=== PATIENT | female | born 1985 | race African-American/Black ===

== ENCOUNTER → 2017-11-21 | Outpatient (CLI) | payer OTHER | END | disposition home or self-care (01) | LOC: KCIC MRI 15:16 | DX: F07.81 Postconcussional syndrome (principal); G43.909 Migraine, unspecified, not intractable, without status migrainosus | CPT/HCPCS: 70551 ==

== ENCOUNTER → 2018-02-10 | Outpatient (CLI) | payer OTHER ==
[~2018-02-10] MED LIST: BUPIVACAINE MPF 0.25% 30 ML VIAL.; LIDOCAINE 1% PF 2 ML VIAL.; methylPREDNISolone ACETATE 80 MG/ML VIAL.
== END ==
LOC: PNCL 10:20
DX: M25.551 Pain in right hip (principal); F32.9 Major depressive disorder, single episode, unspecified; Z98.890 Other specified postprocedural states; Z88.5 Allergy status to narcotic agent; Z88.8 Allergy status to other drugs, medicaments and biological substances; Z72.89 Other problems related to lifestyle
CPT/HCPCS: 20605; 77002; J1040; J3490

== ENCOUNTER → 2018-04-02 | Outpatient (CLI) | payer OTHER ==
[~2018-04-02] MED LIST changes: +BUPIVACAINE MPF 0.25% 10 ML VIAL. ONE; -BUPIVACAINE MPF 0.25% 30 ML VIAL.; +BUPR200T PO; +BUTA1CAP31 PO; +CYCL10TA2 PO; +ESCITALOPRAM OX20 MG PO; +HYDR-963 PO; +IOHEXOL 180 MG/ML 10 ML VIAL. ONE; -LIDOCAINE 1% PF 2 ML VIAL.; +LIDOCAINE 2% PF 2ML VIAL. ONE; +MAGN400C PO; +PANT20TA2 PO; +PROG200C15 PO; +SUMA100T4 PO; +TRAZ-86 PO; +[UNRECOGNIZED DRUG - CODE] PO; -methylPREDNISolone ACETATE 80 MG/ML VIAL.; +methylPREDNISolone ACETATE 80 MG/ML VIAL. ONE
--- NOTE | 2018-04-02 13:59 | PAIN ---
DATE OF SERVICE: 04/02/2018 DIAGNOSES: Right hip pain with osteoarthritis, right hip; also, right greater trochanter bursitis. HISTORY OF PRESENT ILLNESS: The patient is a 32-year-old female who returns for followup status post right greater trochanteric bursa injection 02/10/2018. The patient did very well with 100% improvement for about a month. The patient reports pain has been returning gradually, last reported was in January, but starting to be more painful on the right hip. The patient reports it is radiating, constant, aching, tight, shooting on the right side. The patient reports it is a 10 on a scale of 10 at its worst, 9 on average and 8 at its least. The patient reports and it is an 8 today. The patient reports it is worse with standing and walking. She is doing fourth week of physical therapy and reports she is doing fairly well with this. She felt like it is helpful at least. The patient reports it awakens her from sleep sporadically if she lays on her right side, otherwise she is doing fairly well. She has been increasing her distance walking and doing activities at home as well as with children and household activities with greater ease and comfort. The patient reports no new motor or sensory deficits, no new changes. PHYSICAL EXAMINATION: VITAL SIGNS: The patient's blood pressure 109/72, pulse 72, respirations are 16, temperature is 98.2 degrees Fahrenheit. Weight is 148 pounds. GENERAL: The patient is awake, alert, oriented, appropriate, very pleasant demeanor. HEENT: Head shows normocephalic, atraumatic. Extraocular movements are intact, symmetrical. Oral cavity: Mucous membranes moist and pink. Dentition is intact. NECK: Shows anterior throat supple without palpable lymphadenopathy noted. Swallow reflex is symmetrical. CHEST: Shows normal with inspection. Breath sounds clear to auscultation bilaterally. HEART: Shows S1, S2 clear. No murmurs auscultated. ABDOMEN: Soft, nontender, nondistended. No palpable organomegaly is noted. No rebound or guarding demonstrated. BACK: Shows spine grossly in the midline. EXTREMITIES: The patient's lower extremities show deep tendon reflexes at 2+ in the patellar, 1+ tendo calcaneus tendons. Motor exam is strong with 5/5 dorsiflexion and extension bilaterally. The patient's right greater trochanter is very tender with palpation with significant pain and some radiation of pain in the lateral aspect of the inferior thigh. Left side is nontender. The patient has good rotational motion and Ronnie's maneuver is negative bilaterally. Peripheral pulses are 1+ posterior tibia. No peripheral edema is noted. Options were discussed with the patient. The patient's old chart was reviewed as his current medication regimen and updated. Current review of systems is updated today as well and we will proceed with a repeat right greater trochanteric bursa injection today with fluoroscopic guidance. Risks were again discussed including, but not limited to bleeding, infection, possibility of intravascular injection sequelae, spread of local anesthetic and numbness, side effects of steroid medication and poor results regarding pain control. The patient understands and wished to proceed. The patient will return to clinic in approximately 2 weeks for followup, was counseled on return appointment, activity level and side effects to be aware of. DIAGNOSIS: Right greater trochanteric bursitis. PROCEDURE: Right greater trochanteric bursa injection using C-arm fluoroscopic guidance under sterile prep and drape using local anesthetic. MEDICATION INJECTED: A total of 3 mL of 0.25% bupivacaine and 80 mg Depo-Medrol plus 1.5 mL of Isovue for contrast. CONDITION AT DISCHARGE: Stable. The patient tolerated procedure well, had no complications. MALLORY HUNT MD DR: KALI/robin JOB#: [id number] / [id number]
== END | disposition home or self-care (01) ==
LOC: PNCL 08:17
PROVIDERS: ATTEND Anesthesiology
DX: M70.61 Trochanteric bursitis, right hip (principal); M16.11 Unilateral primary osteoarthritis, right hip; Z88.5 Allergy status to narcotic agent; Z88.8 Allergy status to other drugs, medicaments and biological substances; F32.9 Major depressive disorder, single episode, unspecified; Z72.89 Other problems related to lifestyle; Z98.890 Other specified postprocedural states; Z79.899 Other long term (current) drug therapy
CPT/HCPCS: 20605; 77002; J1040; J2001; J3490; Q9965

== ENCOUNTER → 2018-06-11 | Outpatient (CLI) | payer OTHER ==
[~2018-06-11] MED LIST changes: -BUPIVACAINE MPF 0.25% 10 ML VIAL. ONE; +BUPIVACAINE MPF 0.25% 30 ML VIAL. ONE; -LIDOCAINE 2% PF 2ML VIAL. ONE
--- NOTE | 2018-06-11 22:13 | PAIN ---
DATE OF SERVICE: 06/11/2018 PROGRESS NOTE FOR PAIN CLINIC DIAGNOSES: Right hip joint pain with osteoarthritis, right hip joint and right greater trochanteric bursitis. HISTORY OF PRESENT ILLNESS: The patient is a 32-year-old female who returns for followup status post right greater trochanteric bursa injection on 04/02/2018. The patient did very well with about 100% improvement for about a month after that. The patient reports the pain is returning now and she is currently doing physical therapy exercises, which seems to be helping but still significant pain in the right lateral hip despite stretching and physical therapy. The patient reports the pain is at 8 on scale of 10 at its worst, 8 on average, 6 at its least and is an 8 today. The patient reports it is stabbing, sharp, shooting, becoming more constant, more severe and radiating at times into the lateral anterior thigh, mostly in the lateral thigh on the right side. The patient reports it is worse with walking, standing, change in positions, lying on her right side does awaken her from sleep in about every 5 hours or so. She can usually reposition and get back to sleep. Her left side is hurting mildly beginning to which has not been a problem before, but she is noticing this as she lays more on her left side at night. The patient reports no new motor or sensory deficits and no new bowel or bladder incontinence. Again, currently doing physical therapy exercises and enrolled in physical therapy with some improvement. PHYSICAL EXAMINATION: VITAL SIGNS: The patient's blood pressure 113/71, pulse 67, respirations 16 and temperature 98.2 degrees Fahrenheit. Height is 5 feet 3 inches and weight is 157 pounds. GENERAL: The patient is awake, alert, oriented, appropriate and very pleasant demeanor. HEENT: Head shows normocephalic and atraumatic. Extraocular movements are intact, symmetrical. Oral cavity: Mucous membranes are moist and pink. NECK: Shows anterior throat supple without palpable lymphadenopathy noted. Swallow reflex is symmetrical with normal rotational motion of the cervical spine without difficulty, both laterally as well as extension and flexion without difficulty. CHEST: Shows normal on inspection. Breath sounds clear to auscultation bilaterally. HEART: Shows S1 and S2 clear. No murmurs auscultated. ABDOMEN: Soft, nontender and nondistended. No palpable organomegaly is noted. No rebound or guarding demonstrated. BACK: The patient's back shows spine grossly in the midline with a normal-appearing thoracic kyphosis and lumbar lordotic curvature. The patient has good rotational motion of the lumbar spine, both laterally as well as extension and flexion without difficulty. EXTREMITIES: The patient's lower extremities show deep tendon reflexes at 2+ in the patellar, 1+ tendo-calcaneus tendons. Motor exam is strong with 5/5 dorsiflexion and extension. No peripheral edema is noted. Peripheral pulses are 1+ posterior tibial bilaterally. The patient's right hip shows significant tenderness with palpation over the right greater trochanter even with moderate tenderness and very tender, very severely tender with the patient drawing away from the examining hand. Left side is mildly to moderately tender over the left greater trochanter as well. The patient has full rotational motion of the hip with a negative Ronnie sign bilaterally. Options were discussed with the patient. The patient's old chart was reviewed as well as her current medication regimen updated. Current review of systems updated today as well. We will proceed with a right greater trochanteric bursa injection under fluoroscopic guidance today with risks discussed including, but not limited to bleeding, infection, possibility of intravascular injection sequelae, spread of local anesthetic and numbness, side effects of steroid medication, exposure to fluoroscopy and poor results regarding pain control. The patient understands and wished to proceed. The patient will return to the clinic in approximately 2 weeks for followup, was counseled as to return appointment, activity level and side effects to be aware of. DIAGNOSIS: Right greater trochanteric bursitis. PROCEDURE: Right greater trochanteric bursa injection using C-arm fluoroscopic guidance under sterile prep and drape using local anesthetic. MEDICATION INJECTED: A total of 3 mL of 0.25% bupivacaine and 80 mg Depo-Medrol and 1.5 mL of Isovue for contrast. CONDITION AT DISCHARGE: Stable. The patient tolerated the procedure well and had no complications. MALLORY HUNT MD DR: KALI/robin JOB#: [id number] / [id number]
== END | disposition home or self-care (01) ==
LOC: PNCL 11:15
PROVIDERS: ATTEND Anesthesiology
DX: M70.61 Trochanteric bursitis, right hip (principal); M16.11 Unilateral primary osteoarthritis, right hip; Z88.5 Allergy status to narcotic agent; Z88.8 Allergy status to other drugs, medicaments and biological substances
CPT/HCPCS: 20610; 77002; J1040; J3490; Q9965

== ENCOUNTER → 2018-07-03 | Outpatient (CLI) | payer OTHER ==
[~2018-07-03] MED LIST changes: +BUPIVACAINE MPF 0.25% 10 ML VIAL. ONE; -BUPIVACAINE MPF 0.25% 30 ML VIAL. ONE; +HYDR-3135 PO; -HYDR-963 PO
--- NOTE | 2018-07-03 11:49 | PAIN ---
DATE OF SERVICE: 07/03/2018 PROGRESS NOTE FOR PAIN CLINIC DIAGNOSES: Bilateral hip joint pain with bilateral greater trochanteric bursitis. HISTORY OF PRESENT ILLNESS: The patient is a 32-year-old female who returns for followup status post right greater trochanteric bursa injection with very good results about 100% improvement for the first 3 weeks, now about 50% improvement, but her main complaint is left-sided pain in the hip, mostly in the lateral aspect. She reports she fell about 5 days ago at home, landed on her left side and has had some significant pain in the left lateral hip. Since that time, the patient reports the pain at 10 on a scale of 10 at its worst, 9 on average, 8 at its least and is a 9 today. The patient reports as stabbing, sharp, shooting, radiating down the left lateral thigh to the knee, becoming more constant, more unbearable, worse with walking, standing and changing positions, especially with getting up from a seated position. The patient reports it awakens her from sleep at night. She gets sleep for about 3 hours at a time especially when she is on her left side. The patient reports no new motor or sensory deficits. Right side is doing much better, but again the left side now is much more significant. PHYSICAL EXAMINATION: VITAL SIGNS: The patient's blood pressure 118/71, pulse 72, respirations 18, temperature is 98.5 degrees Fahrenheit. Height is 5 feet 2 inches and weight is 157 pounds. GENERAL: The patient is awake, alert, oriented, appropriate and very pleasant demeanor. HEENT: Head shows normocephalic and atraumatic. Extraocular movements are intact and symmetrical. Oral cavity: Mucous membranes moist and pink. Dentition is intact. NECK: Shows anterior throat supple without palpable lymphadenopathy noted. Swallow reflex symmetrical. CHEST: Shows normal on inspection. Breath sounds clear to auscultation bilaterally. HEART: Shows S1 and S2 clear. No murmurs auscultated. ABDOMEN: Soft, nontender and nondistended. No palpable organomegaly is noted. No rebound or guarding demonstrated. BACK: Shows spine grossly in the midline. Normal appearing thoracic kyphosis and lumbar lordotic curvature. No tenderness over the sacrum or sacroiliac regions. The patient has good rotational motion of lumbar spine, both laterally as well as extension and flexion without difficulty. EXTREMITIES: The patient's lower extremities show deep tendon reflexes at 2+ in the patellar and 1+ tendo calcaneus tendons. Motor exam is strong with 5/5 with dorsiflexion, extension, quadriceps and hamstring flexion. Palpation of the left greater trochanter is very exquisitely tender with palpation with radiation into the lateral aspect of the thigh and knee with palpation only. With abduction of the left hip actively when standing also very tender over the left greater trochanter. The right side is mildly tender, but very insignificant compared to the left side. PLAN: Options were discussed with the patient. The patient's old chart was reviewed as well as her current medications regimen updated. Current review of systems updated today as well. We will proceed with a left-sided greater trochanteric bursa injection with fluoroscopic guidance. The risks were again discussed including, but not limited to bleeding, infection, possibility of intravascular injection sequelae, spread of local anesthetic and numbness, side effects of steroid medication and poor results regarding pain control. The patient understands and wished to proceed. The patient will return to clinic in approximately 2 weeks for followup, was counseled on return appointment, activity level and side effects to be aware of. DIAGNOSIS: Left greater trochanteric bursitis. PROCEDURE: Left greater trochanteric bursa injection using C-arm fluoroscopic guidance under sterile prep and drape using local anesthetic. MEDICATION INJECTED: A total of 80 mg of Depo-Medrol plus 2 mL of 0.25% of bupivacaine and 1.5 mL of Isovue for contrast. CONDITION AT DISCHARGE: Stable. The patient tolerated the procedure well, had no complications. MALLORY HUNT MD DR: KALI/robin JOB#: [id number] / [id number]
== END | disposition home or self-care (01) ==
LOC: PNCL 07:46
PROVIDERS: ATTEND Anesthesiology
DX: M70.62 Trochanteric bursitis, left hip (principal); M70.61 Trochanteric bursitis, right hip; Z88.5 Allergy status to narcotic agent; Z88.3 Allergy status to other anti-infective agents; Z88.6 Allergy status to analgesic agent
CPT/HCPCS: 20610; 77002; J1040; J3490; Q9965; 20605

== ENCOUNTER → 2018-08-12 | Day surgery (SDC) | payer OTHER ==
[~2018-08-12] MED LIST changes: -BUPIVACAINE MPF 0.25% 10 ML VIAL. ONE; -IOHEXOL 180 MG/ML 10 ML VIAL. ONE; +IV RINGERS,LACTATED 1000ML 1,000 ML IV SCH; +PROPOFOL 20 ML IV ONE; -methylPREDNISolone ACETATE 80 MG/ML VIAL. ONE
[2018-08-12 08:41] VITALS: BP 112/77
[2018-08-12 10:58] LABS: U PREG PATIENT NEGATIVE (NEG)
== END | disposition home or self-care (01) ==
LOC: ENDOS 06:50
PROVIDERS: ATTEND Internal Medicine Gastroenterology
DX: K29.50 Unspecified chronic gastritis without bleeding (principal); F32.9 Major depressive disorder, single episode, unspecified; F41.9 Anxiety disorder, unspecified; M19.90 Unspecified osteoarthritis, unspecified site; Z87.19 Personal history of other diseases of the digestive system; Z82.49 Family history of ischemic heart disease and other diseases of the circulatory system; Z79.899 Other long term (current) drug therapy; Z98.890 Other specified postprocedural states; Z88.5 Allergy status to narcotic agent; Z88.8 Allergy status to other drugs, medicaments and biological substances
CPT/HCPCS: 43235; 81025; J2704

== ENCOUNTER → 2018-08-21 | Outpatient (CLI) | payer OTHER ==
[2018-08-12 08:41] VITALS: BP 112/77
[~2018-08-21] MED LIST changes: +BUPIVACAINE MPF 0.25% 10 ML VIAL. ONE; -IV RINGERS,LACTATED 1000ML 1,000 ML IV SCH; -PROPOFOL 20 ML IV ONE; +methylPREDNISolone ACETATE 80 MG/ML VIAL. ONE
--- NOTE | 2018-08-21 11:11 | PAIN ---
DATE OF SERVICE: 08/21/2018 DIAGNOSES: 1. Right hip joint pain with left hip joint pain, bilateral greater trochanteric bursitis. 2. Lumbar degenerative disk disease with lumbar radiculopathy. HISTORY OF PRESENT ILLNESS: The patient is a 32-year-old female who returns for followup status post right and left greater trochanteric bursa injections, most recently on 07/03/2018. The patient had done very well with about 50% improvement. Her main complaint today is low back pain as well as right hip pain, which is her chief complaint. The patient reports pain is much worse with walking, standing, change in positions, but also some pain in the low back and hips, the patient reports right hip, radiating down to the knee as well, but only on the right side, mostly in the lateral anterior aspect, also in the gluteus and across the low back itself. The patient reports her chief complaint, however, is the right hip. She has done very well with greater trochanteric bursa injections and would like to proceed with that today. The patient reports it is increasing with walking and standing, initially was doing much better after the last injection that was on the left side, with daily activities, working activities, household activities, sleeping better at night, now it is awaking her from sleep about every 3 hours and a lot of this is from her back pain as well. The patient reports the pain is 10 on a scale of 10 at its worst, 10 on average, 8 at its least and is 10 today. The patient reports it is aching, sharp, tight, shooting, stabbing, radiating, constant, becoming more unbearable, more severe. The patient reports no new motor or sensory deficits, no new bowel or bladder incontinence or other complaints. PHYSICAL EXAMINATION: VITAL SIGNS: The patient's blood pressure os 124/64, pulse 81, respirations 18, temperature 98.8 degrees Fahrenheit. Height is 5 feet 2 inches, weighs 162 pounds. GENERAL: The patient is awake, alert, oriented, appropriate, very pleasant demeanor. HEENT: Head shows normocephalic, atraumatic. Extraocular movements are intact and symmetrical. Oral cavity: Mucous membranes moist and pink. Dentition is intact. NECK: Shows anterior throat supple without palpable lymphadenopathy noted. Swallow reflex symmetrical. CHEST: Shows normal on inspection. Breath sounds clear to auscultation bilaterally. HEART: Shows S1, S2 clear. No murmurs auscultated. ABDOMEN: Soft, nontender, nondistended. No palpable organomegaly is noted. No rebound or guarding demonstrated. BACK: Shows spine grossly in the midline. Normal-appearing thoracic kyphosis and lumbar lordotic curvature. Lumbar paraspinous muscle shows symmetrical with palpation; shows moderate tenderness throughout the upper, middle, lower distribution of paraspinous muscles bilaterally. The patient has good rotation of motion over both lateral greater than 10 degrees right and left as well as extension greater than 10 degrees forward flexion and 45 degrees without significant increase in the pain. No tenderness over the sacrum or sacroiliac regions. EXTREMITIES: The patient's lower extremities show deep tendon reflexes at 2+ in the patellar and 1+ tendo calcaneus tendons. Motor exam is strong with 5/5 dorsiflexion and extension bilaterally. Peripheral pulses are 1+ posterior tibia. No peripheral edema is noted. With palpation over the greater trochanter, the left and right are tender, but the right is significantly tender, much more severe than the left with palpation over the greater trochanteric bursa with some minor radiation on palpation into the gluteus. Options were discussed with the patient. The patient's old chart was reviewed as was her current medication regimen updated. Current review of systems updated today as well. We will proceed with a right greater trochanteric bursa injection using C-arm fluoroscopic guidance. Risks were again discussed including, but not limited to bleeding, infection, possibility of intravascular injection sequelae, spread of local anesthetic and numbness, side effects of steroid medication, exposure to fluoroscopy and poor results regarding pain control. The patient understands and wished to proceed. The patient will return to the clinic in approximately 2 weeks for followup. She was counseled as to return appointment, activity level and side effects to be aware of. DIAGNOSIS: Right greater trochanteric bursitis. PROCEDURE: Right greater trochanteric bursa injection using C-arm fluoroscopic guidance under sterile prep and drape using local anesthetic. MEDICATION INJECTED: A total of 80 mg of Depo-Medrol plus 3 mL of 0.25% bupivacaine after negative aspiration and 1 mL of Isovue for contrast. CONDITION AT DISCHARGE: Stable. The patient tolerated the procedure well, had no complications. MALLORY HUNT MD DR: Silvino JOB#: [id number] / [id number]
== END | disposition home or self-care (01) ==
LOC: PNCL 08:43
PROVIDERS: ATTEND Anesthesiology
DX: M70.61 Trochanteric bursitis, right hip (principal); M70.62 Trochanteric bursitis, left hip; M51.16 Intervertebral disc disorders with radiculopathy, lumbar region; Z88.5 Allergy status to narcotic agent; Z88.8 Allergy status to other drugs, medicaments and biological substances
CPT/HCPCS: 20610; 77002; J1040; J3490; 20605

== ENCOUNTER → 2018-08-27 | Outpatient (CLI) | payer OTHER ==
[2018-08-12 08:41] VITALS: BP 112/77
[~2018-08-27] MED LIST changes: -BUPIVACAINE MPF 0.25% 10 ML VIAL. ONE; +IOHEXOL 180 MG/ML 10 ML VIAL. ONE; +methylPREDNISolone ACETATE 40 MG/ML VIAL. ONE
--- NOTE | 2018-08-27 16:51 | PAIN ---
DATE OF SERVICE: 08/27/2018 DIAGNOSES: 1. Lumbar radiculopathy with lumbar degenerative disk disease. 2. Bilateral greater trochanteric bursitis. HISTORY OF PRESENT ILLNESS: The patient is a 32-year-old female who returns for followup status post right and left greater trochanteric bursa injections. The patient reports some improvement, but still painful in the hips. Her main complaint is low back pain radiating to the lower extremities, more on the left than the right, into the posterior calves, into the lateral and medial aspect of the lower leg below the knee as well as anterior thigh, more on the left than the right. The patient reports it is radiating, constant, becoming unbearable, stabbing, aching, tight in the low back. Also, some pain in the shoulder and right arm. The patient reports the pain is 10 on a scale of 10 in the back and legs, 7 on average and 7 at its least and is a 7 today. The patient reports no new motor or sensory deficits, has been waking her from sleep about every 2 hours or so. Again with some significant radicular pain radiating to the lower extremity. The patient did have a new CT scan of the lumbar spine which we reviewed with her today, ____ significant findings at the L4-L5 and L5-S1 levels with some degenerative changes. The patient reports no new motor or sensory deficits, no new bowel or bladder incontinence or other complaints. PHYSICAL EXAMINATION: VITAL SIGNS: Blood pressure is 138/74, pulse 68, respirations 16, temperature is 98.2 degrees Fahrenheit, height is 5 feet 3 inches. GENERAL: The patient is awake, alert, oriented, appropriate, very pleasant demeanor. HEENT: Head shows normocephalic, atraumatic. Extraocular movements intact and symmetrical. Oral cavity: Mucous membranes moist and pink. Dentition is intact. NECK: Shows anterior throat supple without palpable lymphadenopathy noted. Swallow reflex is symmetrical. CHEST: Shows normal with inspection. Breath sounds clear to auscultation bilaterally. HEART: Shows S1, S2 clear. No murmurs auscultated. ABDOMEN: Soft, nontender, nondistended. No palpable organomegaly is noted. BACK: Shows spine grossly in the midline. Normal-appearing thoracic kyphosis and lumbar lordotic curvature. Lumbar paraspinous muscle shows symmetrical on inspection, on palpation shows moderate tenderness diffusely, but only moderately without radiation. EXTREMITIES: Lower extremities show deep tendon reflexes at 2+ in the patellar, 1+ tendo calcaneus tendons. Motor exam is strong with 5/5 dorsiflexion and extension bilaterally. Peripheral pulses are 1+ posterior tibia. No peripheral edema is noted bilaterally. Options were discussed with the patient. The patient's old chart was reviewed as her current medication regimen updated. Current review of systems updated today as well. We will proceed with a lumbar epidural steroid injection today with fluoroscopic guidance. Risks were discussed including but not limited to bleeding, infection, possibility of epidural hematoma, subsequent neurologic compromise, dural puncture, headaches, spinal cord and/or nerve damage, side effects of steroid medication and poor results regarding pain control. The patient understands and wished to proceed. The patient will return to clinic in approximately 2 weeks for followup, was counseled on return appointment, activity level and side effects to be aware of. DIAGNOSES: Lumbar radiculopathy with lumbar degenerative disk disease. PROCEDURE: Lumbar epidural steroid injection, translaminar approach L4-L5 level using C-arm fluoroscopic guidance under sterile prep and drape using local anesthetic. MEDICATION INJECTED: A total of 120 mg Depo-Medrol, plus 10 mL of preservative-free normal saline and 2 mL of Isovue for contrast. CONDITION AT DISCHARGE: Stable. The patient tolerated the procedure well, had no complications. MALLORY HUNT MD DR: KALI/robin JOB#: [id number] / [id number]
== END | disposition home or self-care (01) ==
LOC: PNCL 14:11
PROVIDERS: ATTEND Anesthesiology
DX: M51.16 Intervertebral disc disorders with radiculopathy, lumbar region (principal); M70.62 Trochanteric bursitis, left hip; M70.61 Trochanteric bursitis, right hip; Z88.5 Allergy status to narcotic agent; Z88.8 Allergy status to other drugs, medicaments and biological substances
CPT/HCPCS: 62323; J1030; J1040; Q9965

== ENCOUNTER → 2018-10-08 | Outpatient (CLI) | payer OTHER ==
[2018-08-12 08:41] VITALS: BP 112/77
[~2018-10-08] MED LIST changes: +DICY20TA3 PO; +DIVA500T2 PO; +RANI-376 PO; +SUCR1TAB35 PO
--- NOTE | 2018-10-08 10:20 | PAIN ---
DATE OF SERVICE: 10/08/2018 PROGRESS NOTE FOR PAIN CLINIC DIAGNOSES: 1. Lumbar radiculopathy with lumbar degenerative disk disease. 2. Bilateral hip joint pain with bilateral trochanter bursitis. HISTORY OF PRESENT ILLNESS: The patient is a 32-year-old female who returns for followup, status post lumbar epidural steroid injection x 1 on 08/27/2018. The patient did very well with about a 70% improvement for the first month and a half. The patient reports pain is now beginning to return in the low back and the bilateral lower extremities, somewhat worse on the left than the right, but present bilaterally. The patient reports it feels more in her back now as well with walking and standing, changing positions, better with sitting or lying down, but it is beginning to awaken her from sleep once again. Initially, she was doing much better with distance walking, able to do at work activities, household activities, traveling with all greater ease and comfort as well as sleeping better. The patient reports now the pain is a 10 on a scale of 10 at its worst, 8 on average, 8 at its least and is 8 today. The patient reports sharp, also tight, stabbing, constant, becoming more severe, more unbearable in the low back and spine itself. The patient reports no new motor or sensory deficits, no new bowel or bladder incontinence or other complaints. PHYSICAL EXAMINATION: VITAL SIGNS: The patient's blood pressure 103/64, pulse 73, respirations 18, temperature 98.3 degrees Fahrenheit. Height is 5 feet 3 inches and weighs 159 pounds. GENERAL: The patient is awake, alert, oriented, appropriate, very pleasant demeanor. HEENT: Head shows normocephalic and atraumatic. Extraocular movements are intact and symmetrical. Oral cavity: Mucous membranes are moist and pink. Dentition is intact. NECK: Shows anterior throat is supple without palpable lymphadenopathy noted. Swallow reflex is symmetrical. CHEST: Shows normal on inspection. Breath sounds are clear to auscultation bilaterally. HEART: Shows S1 and S2 clear. No murmurs are auscultated. ABDOMEN: Soft, nontender and nondistended. No palpable organomegaly is noted. No rebound or guarding demonstrated. BACK: Shows spine grossly in the midline. Normal appearing thoracic kyphosis and lumbar lordotic curvature. Lumbar paraspinous muscle shows symmetrical on inspection. With palpation shows some moderate tenderness diffusely, but only diffusely in the low lumbar distribution without radiation. No trigger points, no atrophy or hypertrophy. The patient has good rotational motion of the lumbar spine both laterally as well as extension and flexion without difficulty. EXTREMITIES: Lower extremities showed deep tendon reflexes at 2+ in the patella, 1+ tendo-calcaneus tendons are equal. Motor exam is strong with 5/5 dorsiflexion, extension, quadriceps and hamstring flexion is symmetrical. Peripheral pulses are 1+ posterior tibial. No peripheral edema is noted bilaterally. Options were discussed with the patient. The patient's old chart was reviewed as was her current medication regimen updated. Current review of systems updated today as well. We will proceed with a second in the series of lumbar epidural steroid injection today with fluoroscopic guidance. Risks were again discussed including, but not limited to bleeding, infection, possibility of epidural hematoma and subsequent neurological compromise, dural puncture, headaches, spinal cord and/or nerve damage, side effects of steroid medication and poor results regarding pain control. The patient understands and wished to proceed. The patient will return to the clinic in approximately 2 weeks for followup. She was counseled as to return appointment, activity level and side effects to be aware of. DIAGNOSIS: Lumbar radiculopathy with lumbar degenerative disk disease. PROCEDURE: Lumbar epidural steroid injection, translaminar approach L4-L5 level using C-arm fluoroscopic guidance under sterile prep and drape using local anesthetic. MEDICATION INJECTED: A total of 120 mg Depo-Medrol plus 10 mL of preservative-free normal saline and 2 mL of Isovue for contrast. CONDITION AT DISCHARGE: Stable. The patient tolerated the procedure well and had no complications. MALLORY HUNT MD DR: KALI/robin JOB#: [id number] / [id number]
== END | disposition home or self-care (01) ==
LOC: PNCL 07:42
PROVIDERS: ATTEND Anesthesiology
DX: M51.16 Intervertebral disc disorders with radiculopathy, lumbar region (principal); M70.62 Trochanteric bursitis, left hip; M70.61 Trochanteric bursitis, right hip; Z88.5 Allergy status to narcotic agent; Z88.8 Allergy status to other drugs, medicaments and biological substances
CPT/HCPCS: 62323; J1030; J1040; Q9965

== ENCOUNTER → 2019-05-06 | Outpatient (CLI) | payer OTHER ==
[2018-08-12 08:41] VITALS: BP 112/77
[~2019-05-06] MED LIST changes: +BUPIVACAINE MPF 0.25% 10 ML VIAL. ONE; +GABA-585 PO; -methylPREDNISolone ACETATE 40 MG/ML VIAL. ONE
--- NOTE | 2019-05-06 20:49 | PAIN ---
DATE OF SERVICE: 05/06/2019 PROGRESS NOTE FOR PAIN CLINIC DIAGNOSES: 1. Bilateral greater trochanteric bursitis. 2. Bilateral hip joint pain with osteoarthritis. 3. Lumbar radiculopathy with lumbar degenerative disk disease. HISTORY OF PRESENT ILLNESS: The patient is a 33-year-old female who returns for followup, last seen on 10/08/2018. The patient had lumbar epidural steroid injection at that time with good results. She reports her low back pain is about 75% improved. Her main complaint today is bilateral hip pain, mostly on the left side at the lateral aspect of the left hip. The patient reports it is worse with walking, standing, changing positions, especially standing up from a seated position and some of the pain in the back of her leg as well on the left side. The patient reports that it is 10 on a scale of 10 at its worst, average and least over the past week and is a 10 now. The patient reports it is sharp, tight, shooting, burning, cramping, stabbing, radiating, constant, radiating down to the knee at times, on the back of the leg, mostly in the left hip on the lateral aspect with walking and standing, again getting up from a seated position. The patient reports it awakens her from sleep at least 4 times at night if she lays on her left side. PHYSICAL EXAMINATION: VITAL SIGNS: The patient's blood pressure 134/87, pulse 67, respirations 18, temperature 98.1 degrees Fahrenheit, height is 5 feet 2 inches, weight is 176 pounds. GENERAL: The patient is awake, alert, oriented, appropriate, very pleasant demeanor. HEENT: Head shows normocephalic, atraumatic. Extraocular movements are intact and symmetrical. Oral cavity: Mucous membranes moist and pink. Dentition is intact. NECK: Shows anterior throat is supple without palpable lymphadenopathy noted. Swallow reflex is symmetrical. CHEST: Shows normal on inspection. Breath sounds clear to auscultation bilaterally. HEART: Shows S1 and S2 clear. No murmurs auscultated. ABDOMEN: Soft, nontender, nondistended. No palpable organomegaly is noted. No rebound or guarding demonstrated. BACK: Shows spine grossly in the midline. Normal appearing thoracic kyphosis and lumbar lordotic curvature. Lumbar paraspinous muscle shows symmetrical on inspection, with palpation shows some moderate tenderness diffusely bilaterally, but only diffusely without radiation. EXTREMITIES: The patient's lower extremities show deep tendon reflexes at 2+ in the patellar, 1+ tendo-calcaneus tendons. Motor exam is strong with 5/5 dorsiflexion, extension and equal bilaterally. The patient's left hip shows significant tenderness over the left greater trochanter, very severely tender with even moderate to palpation over the greater trochanter. Right side shows some mild tenderness to moderate tenderness over the right trochanter. Left side significantly tender. This is worse with abduction of the hip away from the body with standing on her right leg, significant pain in the area of the greater trochanter as well. Options were discussed with the patient. The patient's old chart was reviewed as well as her current medication regimen updated. Current review of systems updated today as well. We will proceed with a left greater trochanteric bursa injection with fluoroscopic guidance today. Risks were discussed including but not limited to bleeding, infection, possibility of intravascular injection sequelae, spread of local anesthetic and numbness, side effects of steroid medication, exposure to fluoroscopy and poor results regarding pain control. The patient understands and wished to proceed. The patient will return to clinic in approximately 2 weeks for followup. She was counseled on return appointment, activity level and side effects to be aware of. DIAGNOSIS: Left greater trochanteric bursitis. PROCEDURE: Left greater trochanter injection using C-arm fluoroscopic guidance under sterile prep and drape using local anesthetic. MEDICATION INJECTED: Total of 80 mg Depo-Medrol plus 2 mL of 0.25% bupivacaine and 1.5 mL of contrast. CONDITION AT DISCHARGE: Stable. The patient tolerated the procedure well, had no complications. MALLORY HUNT MD DR: KALI/robin JOB#: [id number] / [id number]
== END ==
LOC: PNCL 13:13
PROVIDERS: ATTEND Anesthesiology
DX: M16.12 Unilateral primary osteoarthritis, left hip (principal); M51.16 Intervertebral disc disorders with radiculopathy, lumbar region; M16.11 Unilateral primary osteoarthritis, right hip; M70.62 Trochanteric bursitis, left hip; M70.61 Trochanteric bursitis, right hip
CPT/HCPCS: 20610; 77002; J1040; J3490; Q9965

== ENCOUNTER → 2019-05-20 | Outpatient (CLI) | payer OTHER ==
[2018-08-12 08:41] VITALS: BP 112/77
[~2019-05-20] MED LIST changes: +methylPREDNISolone ACETATE 40 MG/ML VIAL. ONE
--- NOTE | 2019-05-20 11:53 | PAIN ---
DATE OF SERVICE: 05/20/2019 PROGRESS NOTE FOR PAIN CLINIC DIAGNOSES: 1. Bilateral greater trochanteric bursitis. 2. Bilateral hip joint pain with osteoarthritis. 3. Lumbar radiculopathy with lumbar degenerative disk disease. HISTORY OF PRESENT ILLNESS: The patient is a 33-year-old female who returns for followup status post left greater trochanteric bursa injection with about 80% improvement for the first 3 weeks or so, the pain is returning now and is beginning to become more noticeable on the right side as well. She has had pain on both sides. We had injected both of these in the past. Generally one helps and the other is doing quite well, but at this time, both of them are aching quite significantly. The patient just returned from a trip to [place] to see her family. Reports that the pain is increasing with walking, standing, changing positions, especially getting up from a seated position with pain on the lateral aspect of the hip radiating to the lateral thigh bilaterally. The patient reports it is aching, sharp, dull, shooting, burning, stabbing, radiating, severe at times on the right side down the side of the leg and on the left side in the hip and some in the groin area as well as the left side of the thigh. The patient reports that 10 on a scale of 10 at its worst in the past week, 8 on average, 7 at its least and is a 7 today. The patient reports no new motor or sensory deficit, does not awaken her from sleep at night, better when she is up and around on her feet, but getting from a seated to a standing position is significantly painful. The patient reports no other deficits. PHYSICAL EXAMINATION: VITAL SIGNS: The patient's blood pressure 122/41, pulse 72, respirations 18, temperature 98.6 degrees Fahrenheit, height is 5 feet 3 inches, weight is 174 pounds. GENERAL: The patient is awake, alert, oriented, appropriate, very pleasant demeanor. HEENT: Head shows normocephalic, atraumatic. Extraocular movements are intact and symmetrical. Oral cavity: Mucous membranes moist and pink. Dentition is intact. NECK: Shows anterior throat supple without palpable lymphadenopathy noted. Swallow reflex symmetrical. CHEST: Shows normal on inspection. Breath sounds clear to auscultation bilaterally. HEART: Shows S1, S2 clear. No murmurs auscultated. ABDOMEN: Soft, nontender, nondistended. No palpable organomegaly is noted. No rebound or guarding demonstrated. BACK: Shows spine grossly in the midline. Normal appearing thoracic kyphosis and lumbar lordotic curvature. Lumbar paraspinous muscle shows symmetrical on inspection, on palpation shows some mild tenderness diffusely, but only diffusely throughout the upper, middle and lower distribution of paraspinous muscles. Full rotational motion of lumbar spine is maintained laterally as well as extension and flexion without difficulty. EXTREMITIES: The patient's lower extremities show deep tendon reflexes 2+ in the patellar, 1+ tendo-calcaneus tendons. Motor exam is strong with 5/5 dorsiflexion and extension bilaterally as is quadriceps and hamstring flexion. There is significant tenderness with palpation over the bilateral trochanter, worse on the left than the right with very significant pain radiating into the left and into the right lateral thigh with palpation itself. Options were discussed with the patient. The patient's old chart was reviewed as her current medication regimen updated. Current review of systems updated today as well. We will proceed with bilateral greater trochanteric bursa injections with fluoroscopic guidance. Risks were again discussed including, but not limited to bleeding, infection, possibility of intravascular injection sequelae, spread of local anesthetic and numbness, side effects of steroid medication, exposure to fluoroscopy and poor results regarding pain control. The patient understands and wished to proceed. The patient will return to clinic in approximately 2 weeks for followup. She was counseled as to return appointment, activity level and side effects to be aware of. DIAGNOSIS: Bilateral greater trochanteric bursitis. PROCEDURE: Bilateral greater trochanteric bursa injection using C-arm fluoroscopic guidance under sterile prep and drape using local anesthetic. MEDICATION INJECTED: Total of 120 mg Depo-Medrol plus a total of 4 mL of 0.25% bupivacaine and 3 mL of contrast. CONDITION AT DISCHARGE: Stable. The patient tolerated the procedure well, had no complications. MALLORY HUNT MD DR: KALI/robin JOB#: [id number] / [id number]
== END | disposition home or self-care (01) ==
LOC: PNCL 10:43
PROVIDERS: ATTEND Anesthesiology
DX: M16.0 Bilateral primary osteoarthritis of hip (principal); M70.61 Trochanteric bursitis, right hip; M70.62 Trochanteric bursitis, left hip; M51.16 Intervertebral disc disorders with radiculopathy, lumbar region; Z98.890 Other specified postprocedural states
CPT/HCPCS: 20610; 77002; J1030; J1040; J3490; Q9965; 20605

== ENCOUNTER → 2019-07-29 | Outpatient (CLI) | payer OTHER ==
[2018-08-12 08:41] VITALS: BP 112/77
--- NOTE | 2019-07-29 11:04 | PAIN ---
DATE OF SERVICE: 07/29/2019 PROGRESS NOTE FOR PAIN CLINIC DIAGNOSES: 1. Bilateral greater trochanteric bursitis. 2. Bilateral hip joint pain with osteoarthritis. 3. Lumbar radiculopathy with lumbar degenerative disk disease. HISTORY OF PRESENT ILLNESS: The patient is a 33-year-old female who returns for followup status post bilateral greater trochanteric bursa injections on 05/20/2019. The patient did very well with about 75% improvement and her right side is still doing very well, but the left side has become more painful as she had a bunionectomy surgery. She is wearing a soft boot on her left foot, which is fairly heavy for her to get around and has been exacerbating the left hip pain. The patient reports otherwise she is doing very well, increasing her distance walking with household activities being done with much greater ease and comfort, traveling with greater ease. She took a trip to [place] in the meantime and did quite well with that prior to the bunionectomy. The patient reports the pain now is a 10 on a scale of 10 at its worst over the past week, 9 on average, 8 at its least and 9 today, pressure, aching, sharp, shooting, stabbing, radiating, constant, severe, in the left lateral hip and lateral thigh. The patient reports no new motor or sensory deficits in the right side, again still doing fairly well. PHYSICAL EXAMINATION: VITAL SIGNS: The patient's blood pressure 116/69, pulse is 81, respirations 16, temperature is 98.3 degrees Fahrenheit, height is 5 feet 3 inches, weight is 175 pounds. GENERAL: The patient is awake, alert, oriented, appropriate, very pleasant demeanor. HEENT: Shows normocephalic, atraumatic. Extraocular movements are intact and symmetrical. Oral cavity: Mucous membranes moist and pink. Dentition is intact. NECK: Shows anterior throat supple without palpable lymphadenopathy noted. Swallow reflex symmetrical. CHEST: Shows normal on inspection. Breath sounds are clear bilaterally. HEART: Shows S1, S2 clear. No murmurs auscultated. ABDOMEN: Soft, nontender, nondistended. No palpable organomegaly is noted. No rebound or guarding demonstrated. BACK: Shows spine grossly in the midline. Normal appearing thoracic kyphosis and lumbar lordotic curvature. Lumbar paraspinous muscle shows symmetrical on inspection, with palpation shows some mild tenderness diffusely in the low lumbar distribution without radiation. The patient shows full rotational motion of lumbar spine, both laterally as well as extension and flexion without difficulty. EXTREMITIES: Lower extremities show deep tendon reflexes 2+ in the patellar, 1+ tendo-calcaneus tendons. Motor exam is strong with 5/5 dorsiflexion, extension, quadriceps and hamstring flexion and symmetrical. Peripheral pulses are 1+ posterior tibia. No peripheral edema is noted. The patient's left lateral greater trochanter is very significantly tender with palpation directly over the trochanter, also with abduction of the left hip shows significant pain radiating into the lateral thigh, not quite to the knee. Her right side is nontender. PLAN: Options were discussed with the patient. The patient's old chart was reviewed as her current medication regimen updated. Current review of systems updated today as well. We will proceed with a left greater trochanteric bursa injection today with fluoroscopic guidance. Risks were again discussed including, but not limited to bleeding, infection, possibility of intravascular injection sequelae, spread of local anesthetic and numbness, side effects of steroid medication and poor results regarding pain control. The patient understands and wished to proceed. The patient will return to clinic in approximately 2 weeks for followup. She was counseled on return appointment, activity level and side effects to be aware of. DIAGNOSIS: Left greater trochanteric bursitis. PROCEDURE: Left greater trochanteric bursa injection using C-arm fluoroscopic guidance under sterile prep and drape using local anesthetic. MEDICATION INJECTED: A total of 80 mg Depo-Medrol plus 3 mL of 0.25% bupivacaine and 1 mL of contrast. CONDITION AT DISCHARGE: Stable. The patient tolerated procedure well, had no complications. MALLORY HUNT MD DR: KALI/robin JOB#: [id number] / [id number]
== END ==
LOC: PNCL 09:25
PROVIDERS: ATTEND Anesthesiology
DX: M16.0 Bilateral primary osteoarthritis of hip (principal); M70.62 Trochanteric bursitis, left hip; M70.61 Trochanteric bursitis, right hip; M51.16 Intervertebral disc disorders with radiculopathy, lumbar region
CPT/HCPCS: 20610; 77002; J1040; J3490; Q9965; 20605; J1030

== ENCOUNTER → 2019-08-26 | Outpatient (CLI) | payer OTHER ==
[2018-08-12 08:41] VITALS: BP 112/77
[~2019-08-26] MED LIST changes: -BUPIVACAINE MPF 0.25% 10 ML VIAL. ONE; +CELE200C PO; +TRAZ-123 PO; -TRAZ-86 PO
--- NOTE | 2019-08-26 16:29 | PAIN ---
DATE OF SERVICE: 08/26/2019 PROGRESS NOTE FOR PAIN CLINIC DIAGNOSES: 1. Lumbar radiculopathy with lumbar degenerative disk disease. 2. Bilateral greater trochanteric bursitis. 3. Bilateral hip joint pain with osteoarthritis. HISTORY OF PRESENT ILLNESS: This is a 33-year-old female who returns for followup status post left greater trochanteric bursa injection on 07/29/2019. The patient did very well with this with about a 75-80% improvement. Her main complaint today is her low back pain; however, she has got low back pain radiating to posterior gluteus, posterolateral thighs and lateral hips and anterior thighs and in the back itself, especially. The patient reports that it has been getting worse with time. The whole back feels like it is aching and dull. Describes it as stabbing, tight, tingling, burning at times, radiating into the lower extremities, worse on the left than the right foot, constant, severe, becoming more unbearable with walking and standing. The patient reports it is better with sitting or lying down, does not awaken her from sleep at night. The patient reports it is a 10 on a scale of 10 at its worst over the past week, 7 on average, 7 at its least and is a 7 today. The patient reports no new motor or sensory deficits, no new changes, no new bowel or bladder incontinence. PHYSICAL EXAMINATION: VITAL SIGNS: The patient's blood pressure is 118/72, pulse is 81, respirations are 18, temperature 98.4 degrees Fahrenheit, height is 5 feet 2 inches, weight is 177 pounds. GENERAL: The patient is awake, alert, oriented, appropriate, very pleasant demeanor. HEENT: Shows normocephalic, atraumatic. Extraocular movements are intact and symmetrical. Oral cavity shows mucous membranes moist and pink. Dentition is intact. NECK: Shows anterior throat supple without palpable lymphadenopathy noted. Swallow reflex symmetrical. CHEST: Shows normal on inspection. Breath sounds are clear bilaterally. HEART: Shows S1, S2 clear. No murmurs auscultated. ABDOMEN: Soft, nontender, nondistended. No palpable organomegaly is noted. No rebound or guarding demonstrated. BACK: Shows spine grossly in the midline. Normal-appearing cervical lordotic curvature, thoracic kyphotic curvature and lumbar lordotic curvature. The patient has some tattooing in lumbar distribution. Lumbar paraspinous muscle shows symmetrical on inspection, on palpation shows some moderate tenderness diffusely bilaterally going diffusely without radiation. The patient shows good rotational motion of lumbar spine, both laterally as well as extension and flexion without significant difficulty. EXTREMITIES: The patient's lower extremities show deep tendon reflexes 2+ in the patellar and tendo-calcaneus tendons are 1+. Motor exam is strong with 5/5 dorsiflexion, extension, quadriceps and hamstring flexion and symmetrical. She does have some tenderness over the left greater trochanter with direct palpation, but only very mildly tender on the right. Peripheral pulses are 1+ in posterior tibia. No peripheral edema is noted bilaterally. PLAN: Options were discussed with the patient. The patient's old chart was reviewed as her current medication regimen updated. Current review of systems updated today as well. We will proceed with a lumbar epidural steroid injection today with fluoroscopic guidance as she has done very well with these in the past. Risks were again discussed including, but not limited to bleeding, infection, possibility of epidural hematoma, subsequent neurological compromise, dural puncture headaches, spinal cord and/or nerve damage, side effects of steroid medication and poor results regarding pain control. The patient understands and wished to proceed. The patient will return to the clinic in approximately 2 weeks for followup. She was counseled on return appointment, activity level and side effects to be aware of. DIAGNOSES: Lumbar radiculopathy with lumbar degenerative disk disease. PROCEDURE: Lumbar epidural steroid injection, translaminar approach L4-L5 level using C-arm fluoroscopic guidance under sterile prep and drape using local anesthetic. MEDICATION INJECTED: A total of 120 mg Depo-Medrol plus 10 mL of preservative-free normal saline and 2 mL of contrast. CONDITION AT DISCHARGE: Stable. The patient tolerated the procedure well, had no complications. MALLORY HUNT MD DR: KALI/robin JOB#: [id number] / [id number]
== END ==
LOC: PNCL 11:07
PROVIDERS: ATTEND Anesthesiology
DX: M51.16 Intervertebral disc disorders with radiculopathy, lumbar region (principal); M70.62 Trochanteric bursitis, left hip; M70.61 Trochanteric bursitis, right hip; M16.0 Bilateral primary osteoarthritis of hip
CPT/HCPCS: 62323; J1030; J1040; Q9965

== ENCOUNTER → 2019-09-09 | Outpatient (CLI) | payer OTHER ==
[2018-08-12 08:41] VITALS: BP 112/77
[~2019-09-09] MED LIST changes: +BUPIVACAINE MPF 0.25% 10 ML VIAL. ONE; -methylPREDNISolone ACETATE 40 MG/ML VIAL. ONE
--- NOTE | 2019-09-09 22:28 | PAIN ---
DATE OF SERVICE: 09/09/2019 PROGRESS NOTE FOR PAIN CLINIC DIAGNOSES: 1. Bilateral greater trochanteric bursitis. 2. Bilateral hip joint pain with osteoarthritis. 3. Lumbar radiculopathy with lumbar degenerative disk disease. HISTORY OF PRESENT ILLNESS: The patient is a 33-year-old female who returns for followup status post greater trochanteric bursa injection, and most recently lumbar epidural steroid injection, which was on 08/26/2019. The patient did very well with this with about 50% improvement. The patient reports she is doing very well, but her left hip is becoming more painful on the lateral aspect of the bursa. She has done very well with bursal injections before about 75-80% improvement and reports that she is still having increased pain from the hip to the lateral thigh to the level of the knee, worse with walking, standing, changing positions and abduction of the left lower extremity. The patient reports no new motor or sensory deficits, no new changes. Describes the pain as aching and sharp, sometimes shooting on the left leg, is described as stabbing, radiating, becoming more constant and severe, unbearable with activity, better with sitting or lying down, awakens her from sleep occasionally, but not most nights and she usually sleeps about 6-7 hours without pain, if she is not lying on her left side, doing fairly well. The patient reports the pain is a 10 on a scale of 10 at its worst over the past week, 10 on average, 8 at its least and is a 10 today. PHYSICAL EXAMINATION: VITAL SIGNS: The patient's blood pressure was 106/42, pulse 73, respirations 16, temperature 98.5 degrees Fahrenheit, height is 5 feet 3 inches, weight is 179 pounds. GENERAL: The patient is awake, alert, oriented, appropriate, very pleasant demeanor. HEENT: Shows normocephalic, atraumatic. Extraocular movements are intact and symmetrical. Oral cavity shows mucous membranes moist and pink. Dentition is intact. NECK: Shows anterior throat supple. CHEST: Shows normal on inspection. Breath sounds clear bilaterally. HEART: Shows S1, S2 clear. ABDOMEN: Soft, nontender, nondistended. BACK: Shows spine grossly in the midline. Normal appearing thoracic kyphosis and lumbar lordotic curvature. Lumbar paraspinous muscle shows symmetrical on inspection, with palpation shows some mild tenderness in the middle and lower distribution of paraspinous muscles, but good rotational motion both laterally as well as extension and flexion without significant difficulty or pain reported. EXTREMITIES: The patient's lower extremities show deep tendon reflexes 2+ in the patellar, 1+ tendo-calcaneus tendons. Motor exam is strong with 5/5 dorsiflexion, extension and equal bilaterally. The patient's left greater trochanter shows significant tenderness with palpation over the left greater trochanter with radiation into the lateral aspect of the thigh about to the mid thigh. Right side shows only very mild tenderness without radiation. Options were discussed with the patient. The patient's old chart was reviewed as her current medication regimen updated. Current review of systems updated today as well. We will proceed with a left greater trochanteric bursa injection with fluoroscopic guidance today. Risks were again discussed including, but not limited to bleeding, infection, possibility of intravascular injection sequelae, spread of local anesthetic and numbness, side effects of steroid medication and poor results regarding pain control. The patient understands and wished to proceed. The patient will return to clinic in approximately 2 weeks or as necessary, would like to call for next appointment. The patient was counseled as to activity level as well as side effects to be aware of. DIAGNOSIS: Left greater trochanteric bursitis. PROCEDURE: Left greater trochanteric bursa injection using C-arm fluoroscopic guidance under sterile prep and drape using local anesthetic. MEDICATION INJECTED: A total of 80 mg Depo-Medrol plus 3 mL of 0.25% bupivacaine and 1.5 mL of contrast. CONDITION AT DISCHARGE: Stable. The patient tolerated procedure well, had no complications. MALLORY HUNT MD DR: KALI/robin JOB#: [id number] / [id number]
== END | disposition home or self-care (01) ==
LOC: PNCL 14:18
PROVIDERS: ATTEND Anesthesiology
DX: M70.62 Trochanteric bursitis, left hip (principal); M16.0 Bilateral primary osteoarthritis of hip; M51.06 Intervertebral disc disorders with myelopathy, lumbar region; M51.16 Intervertebral disc disorders with radiculopathy, lumbar region; Z98.890 Other specified postprocedural states; Z88.6 Allergy status to analgesic agent; Z88.8 Allergy status to other drugs, medicaments and biological substances
CPT/HCPCS: 20610; 77002; J1040; J3490; Q9965

== ENCOUNTER → 2020-05-09 | Outpatient (CLI) | payer OTHER ==
[2018-08-12 08:41] VITALS: BP 112/77
--- NOTE | 2020-05-09 14:08 | PDOC ---
Progress Note - Pain Clinic Date of Service: DOS: DATE: 05/09/20 TIME: 14:02 Diagnosis: Dx: Bilateral greater trochanteric bursitis Bilateral hip joint pain with primary osteoarthritis Lumbar radiculopathy with lumbar degenerative disc disease History or Present Illness: HPI: 34-year-old female returns follow-up status post previous bilateral greater trochanteric bursa injections with good results patient reports about 75% after the last injection was on the left side. She was last seen September 09, 2019 did very well after the last injection patient ports the pain is beginning to return now about the past 3 to 4 weeks especially on the left lateral hip. Worse with walking standing changing position especially standing from seated positions been waking her from sleep if she lays on her left side about every 6 hours. Patient has some pain on the right side but is very minimal compared to the left. Patient reports no new motor or sensory deficits no new bowel or bladder incontinence or other complaints. Physical Exam: VS: Blood pressure is 116/78 pulse 62 respirations 18 temperature 99.1 F height is 5 feet 3 inches weight is 1 9 0 pounds PE: PHYSICAL EXAMINATION: GENERAL: The patient is awake, alert, oriented, appropriate, very pleasant demeanor HEENT: Shows normocephalic, atraumatic. Extraocular movements are intact and symmetrical. Oral cavity: Mucous membranes moist and pink. Dentition is intact. NECK: Shows anterior throat supple without palpable lymphadenopathy noted. Swallow reflex symmetrical. CHEST: Shows normal on inspection. Breath sounds are clear bilaterally, no rales rhonchi wheezes auscultated. HEART: Shows S1, S2 clear. No murmurs auscultated. ABDOMEN: Soft, nontender, nondistended. No palpable organomegaly is noted. No rebound or guarding demonstrated. BACK: Shows spine grossly in the midline. Normal-appearing cervical lordotic curvature. There is slightly increased thoracic kyphosis, some minor flattening of the lumbar lordotic curvature. Lumbar paraspinous muscles show symmetrical on inspection, on palpation shows some moderate tenderness diffusely throughout the upper, middle and lower distribution of the paraspinous muscles bilaterally and also into the lower thoracic paraspinous musculature, firm and tender, but without specific trigger points, without radiation of pain. The patient has good rotational motion of the lumbar spine, both laterally as well as extension and flexion without significant difficulty. No tenderness over the spinous processes, sacrum or sacroiliac regions. EXTREMITIES: Lower extremities show deep tendon reflexes 2+ in the patellar and tendo calcaneus tendons. Motor exam is 5 on a scale of 5 with right dorsiflexion, extension, quadriceps and hamstring flexion and 5/5 on the left. Peripheral pulses are 1+ posterior tibial. No peripheral edema is noted bilaterally. Lower extremities are warm and dry to touch, equal in color and appearance. Patient's lower extremity shows significant tenderness with palpation over the left greater trochanter mild tenderness on the right but the left is significantly tender with patient withdrawing from the examining hand. Patient is able to stand, stand on her toes without significant difficulty or loss of balance. Patient walks with a normal-appearing gait. Does show increased pain with abduction of the left hip while standing on the right lower extremity. SKIN: Shows warm and dry, good turgor. No edema. No sores, rashes or bruising throughout. Procedure: Procedure: Options were discussed with the patient. Patient will chart was reviewed as her current medication regimen updated current review of systems updated today as well. We will proceed with a left greater trochanteric bursa injection with f luoroscopic guidance. Risks were discussed including but not limited to bleeding ,infection, possibility of spread of of local anesthetic and numbness, side effects of steroid medication, exposure to fluoroscopy, and poor results regarding pain control. Patient understands wished to proceed. Patient will return to clinic in approximately 4 weeks or as necessary. Medication Injected: Med Injected: Under sterile prep and drape patient in right lateral decubitus position, using C-arm fluoroscopic guidance for AP view skin was anesthetized with 1% lidocaine using a 25-gauge 2 1/2 inch needle, the greater trochanteric bursa was injected under direct fluoroscopic vision total medications used 1.5 cc contrast, 3 cc 0.25% bupivacaine, 80 mg total Depo-Medrol. Patient tolerated the procedure well had no complications. Condition at Discharge: Condition at Discharge: Condition at discharge stable patient tolerated procedure well had no complications. MALLORY HUNT MD May 09, 2020 14:08
== END | disposition home or self-care (01) ==
LOC: PNCL 13:25
PROVIDERS: ATTEND Anesthesiology
DX: M70.61 Trochanteric bursitis, right hip (principal); M70.62 Trochanteric bursitis, left hip; M51.16 Intervertebral disc disorders with radiculopathy, lumbar region; M16.0 Bilateral primary osteoarthritis of hip; F41.9 Anxiety disorder, unspecified; F32.9 Major depressive disorder, single episode, unspecified; Z98.890 Other specified postprocedural states; Z79.899 Other long term (current) drug therapy
CPT/HCPCS: 20610; 77002; J1040; J3490; Q9965; 20605

== ENCOUNTER → 2020-07-04 | Outpatient (CLI) | payer OTHER ==
[2018-08-12 08:41] VITALS: BP 112/77
[~2020-07-04] MED LIST changes: +methylPREDNISolone ACETATE 40 MG/ML VIAL. ONE
--- NOTE | 2020-07-04 12:05 | PDOC ---
Progress Note - Pain Clinic Date of Service: DOS: DATE: 07/04/20 TIME: 11:58 Diagnosis: Dx: Bilateral greater trochanteric bursitis Bilateral hip joint pain with osteoarthritis Lumbar radiculopathy with lumbar degenerative disc disease History or Present Illness: HPI: 34-year-old female returns follow-up status post bilateral greater trochanteric bursa injections. Most recently patient had the left side injected with very good results about 50% improvement for about 2-1/2 weeks the pain returning now to moderate extent on the left side and the right side more on the left than the right but present bilaterally worse with walking standing changing position especially getting up from a seated position is most noticeable pain in the bilateral lateral hips rating to the lateral thigh to the knee at times. Patient reports it is sharp tight shooting stabbing at times radiating constant can be severe and unbearable on and off on the right side but mostly constant on the left side. Patient ports wakes her from sleep at night as she cannot lay comfortably on the right or left side and this is disturbing sleep significantly patient reports initially she was a much better with distance walking standing sitting able to do work activities household activities and try with greater ease and comfort now the pain returning. Patient rates pain is a 10 on scale 10 is worse over the past week 10 on average 8 its least is a 10 today. Patient reports no new motor or sensory deficits no new bowel or bladder consult complaints. Physical Exam: VS: Blood pressure is 122/69 pulse 69 respirations 18 temperature 98.8 F height is 5 foot 3 inches weight is 185 pounds PE: PHYSICAL EXAMINATION: GENERAL: The patient is awake, alert, oriented, appropriate, very pleasant demeanor HEENT: Shows normocephalic, atraumatic. Extraocular movements are intact and symmetrical. Oral cavity: Mucous membranes moist and pink. NECK: Shows anterior throat supple without palpable lymphadenopathy noted. Swallow reflex symmetrical. CHEST: Shows normal on inspection. Breath sounds are clear bilaterally. HEART: Shows S1, S2 clear. No murmurs auscultated. ABDOMEN: Soft, nontender, nondistended, obese. No palpable organomegaly is noted. No rebound or guarding demonstrated. BACK: Shows spine grossly in the midline. Normal-appearing cervical lordotic curvature. There is slightly increased thoracic kyphosis, some minor flattening of the lumbar lordotic curvature. Lumbar paraspinous muscles show symmetrical on inspection, on palpation shows some moderate tenderness diffusely throughout the upper, middle and lower distribution of the paraspinous muscles without specific trigger points, without radiation of pain. The patient has good rotational motion of the lumbar spine, both laterally as well as extension and flexion without significant difficulty. No tenderness over the spinous processes, sacrum or sacroiliac regions. EXTREMITIES: Lower extremities show deep tendon reflexes 2+ in the patellar and tendo calcaneus tendons. Motor exam is 5 on a scale of 5 with right dorsiflexion, extension, quadriceps and hamstring flexion and 5/5 on the left. Peripheral pulses are 1+ posterior tibial. No peripheral edema is noted bilaterally. Lower extremities are warm and dry to touch, equal in color and appearance. Patient has significant tenderness over the greater trochanters greater on the left than the right but very tender bilaterally with direct palpation with some moderate radiation to the lateral thigh but not quite to the knee with palpation bilaterally. Patient shows good good ability for abduction of the lower extremities but with significant pain more on the left than the right with this maneuver over the greater trochanters as well. SKIN: Shows warm and dry, good turgor. No edema. No sores, rashes or bruising throughout. Procedure: Procedure: Options were discussed with the patient. Patient chart was reviewed as her current medication regimen updated current review of systems updated today as well. Proceed with bilateral greater trochanteric bursa injections with fluoroscopic guidance. Risk were discussed including but not limited to bleeding infection possibility of intravascular injection sequelae spread local anesthetic numbness side effects steroid medication exposure fluoroscopy and portal scarring pain control. Patient understands wished to proceed patient will return to clinic in approximately 4 weeks for follow-up was counseled as to return appointment activity level and side effects to be aware of. Medication Injected: Med Injected: Under sterile prep and drape patient in supine position using C-arm fluoroscopic guidance patient's greater trochanters were visualized with direct fluoroscopic guidance 25-gauge needle was then directed into the greater trochanter with negative aspiration noted each side at this time solution containing 60 mg Depo- Medrol +3 cc 0.25% Vivacaine and 1.5 cc each side of contrast was injected with good spread around the greater trochanteric bursa without uptake bilaterally. Patient tolerated procedure well had no complications. Condition at Discharge: Condition at Discharge: Condition at discharge is stable patient tolerated procedure well and had no complications. MALLORY HUNT MD Jul 04, 2020 12:05
== END | disposition home or self-care (01) ==
LOC: PNCL 11:15
PROVIDERS: ATTEND Anesthesiology
DX: M70.62 Trochanteric bursitis, left hip (principal); M70.61 Trochanteric bursitis, right hip; M51.16 Intervertebral disc disorders with radiculopathy, lumbar region; K21.9 Gastro-esophageal reflux disease without esophagitis; M19.90 Unspecified osteoarthritis, unspecified site; F32.9 Major depressive disorder, single episode, unspecified; Z79.899 Other long term (current) drug therapy; Z88.8 Allergy status to other drugs, medicaments and biological substances; Z88.5 Allergy status to narcotic agent; Z88.1 Allergy status to other antibiotic agents
CPT/HCPCS: 20610; 77002; J1030; J1040; J3490; Q9965; 20605

== ENCOUNTER → 2021-03-19 | Outpatient (CLI) | payer OTHER ==
[2018-08-12 08:41] VITALS: BP 112/77
[~2021-03-19] MED LIST changes: -BUPIVACAINE MPF 0.25% 10 ML VIAL. ONE; -BUPR200T PO; +BUPR200T3 PO; +PREG150C PO; +SERT-268 PO
--- NOTE | 2021-03-19 12:50 | PDOC ---
Progress Note - Pain Clinic Date of Service: DOS: DATE: 03/19/21 TIME: 12:47 Diagnosis: Dx: Cervical radiculopathy with cervical degenerative disease Lumbar radiculopathy with lumbar degenerative disc disease Bilateral greater trochanteric bursitis Bilateral hip joint pain with osteoarthritis History or Present Illness: HPI: 35-year-old female returns for follow-up status post bilateral greater tro chanteric bursa injections last seen July 04, 2020. Patient did very well your 100% improvement her main complaint now is neck and upper extremity pain as well as upper back pain. Patient reports been going on for several months in the upper back and neck and shoulders radiating to the upper extremities all the way to the hands and to the mid back as well. Patient reports having significant difficulty with dropping items with both the upper extremities right essentially equal to left and fine motor movements such as using buttons or snaps are difficult with her fingers since the pain is become more noticeable patient reported sharp and tight stabbing burning some tingling in the hands bilaterally constant severe unbearable with upper back and mid back as well as disturbing sleep about every 5-7 hours patient reports her pain is a 10 on scale 10 is worse over the past week 10 on average 9 its least is a 10 today. She had new MRI scan cervical spine was reviewed with her today showing multilevel bulges and shallow protrusions C4-5 C5-6 and C6-7 without significant central stenosis with mild neuroforaminal narrowing at C5-6 as well. Physical Exam: VS: Blood pressure is 116/82 pulse 72 respirations 20 temperature 90.4 F weight is 186 pounds PE: PHYSICAL EXAMINATION: GENERAL: The patient is awake, alert, oriented, appropriate, very pleasant in demeanor HEENT: Shows normocephalic, atraumatic. Extraocular movements are intact and symmetrical. Oral cavity: Mucous membranes moist and pink. Dentition is intact. NECK: Shows anterior throat supple without palpable lymphadenopathy noted. Swallow reflex symmetrical. CHEST: Shows normal on inspection. Breath sounds are clear bilaterally, distant but no rales or rhonchi. HEART: Shows S1, S2 clear. No murmurs auscultated. ABDOMEN: Soft, nontender, nondistended, obese. No palpable organomegaly is noted. BACK: Shows spine grossly in the midline. Normal-appearing cervical lordotic curvature. Cervical paraspinous muscles show symmetrical inspection on palpation some moderate tenderness diffusely throughout the upper middle lower distribution the paraspinous muscles bilaterally. Patient shows good rotation motion cervical spine both laterally as well as extension flexion without significant increase in pain. There is slightly increased thoracic kyphosis, some minor flattening of the lumbar lordotic curvature. Lumbar paraspinous muscles show symmetrical on inspection, on palpation shows some moderate tenderness diffusely throughout the upper, middle and lower distribution of the paraspinous muscles, but without specific trigger points, without radiation of pain. The patient has good rotational motion of the lumbar spine, both laterally as well as extension and flexion without significant difficulty. No tenderness over the spinous processes, sacrum or sacroiliac regions. EXTREMITIES: Lower extremities show deep tendon reflexes 2+ in the patellar and tendo calcaneus tendons. Motor exam is 5 on a scale of 5 with right dorsiflexion, extension, quadriceps and hamstring flexion and 5/5 on the left. Peripheral pulses are 1 posterior tibial. No peripheral edema is noted bilaterally. Lower extremities are warm and dry to touch, equal in color and appearance. Upper extremity show deep tendon reflexes 2+ triceps tendons motor exam strong with principal engineer strength rated at 5 out of 5 as is bicep and tricep flexion bilaterally. Peripheral pulses are 2+ radial. Shoulder shrug strong and intact without loss of strength on resistance but with moderate pain reported bilaterally. SKIN: Shows warm and dry, good turgor. No edema. No sores, rashes or bruising throughout. Procedure: Procedure: Options were discussed with the patient. Patient chart reviews her current medication regimen updated current review of systems updated today as well. We will proceed with a cervical epidural steroid injection today with fluoroscopic guidance. Risks were discussed including but not limited to: Bleeding, infec tion, possibility of epidural hematoma and subsequent neurological compromise, dural puncture, headaches, spinal cord and/or nerve damage, side effects of steroid medication, and poor results regarding pain control. Patient understands and wished to proceed. Patient return to clinic in approximate 2 weeks for follow-up, was counseled as to return appointment activity level and side effects to be aware of. Medication Injected: Med Injected: Procedure cervical epidural steroid injection at the C6-7 level, using local anesthetic under sterile prep and drape using C-arm fluoroscopic guidance under local anesthesia medications injected ;120 mg Depo-Medrol +5 mL normal saline and 2 mL contrast; condition at discharge is stable patient tolerated procedure well. and had no complications Condition at Discharge: Condition at Discharge: Condition at discharge stable, patient alert the procedure well had no complications. MALLORY HUNT MD Mar 19, 2021 12:50
--- NOTE | 2021-03-19 12:51 | PDOC4 ---
Procedure Note: ICD 10 Code: ICD 10 Code: M54.12 M50.30 Procedure Note: Patient was consented for cervical epidural steroid injection with fluoroscopic guidance. Risks were discussed including but not limited to: Bleeding, infection, possibility of epidural hematoma and subsequent neurological compromise, dural puncture, headaches, spinal cord and/or nerve damage, side effects of steroid medication, and poor results regarding pain control. Patient understands and wished to proceed. Procedure cervical epidural steroid injection at the C6-7 level, using local anesthetic under sterile prep and drape using C-arm fluoroscopic guidance under local anesthesia medications injected ;120 mg Depo-Medrol +5 mL normal saline and 2 mL contrast; condition at discharge is stable patient tolerated procedure well. and had no complications MALLORY HUNT MD Mar 19, 2021 12:51
== END ==
LOC: PNCL 11:58
PROVIDERS: ATTEND Anesthesiology
DX: M50.123 Cervical disc disorder at C6-C7 level with radiculopathy (principal); K21.9 Gastro-esophageal reflux disease without esophagitis; M19.90 Unspecified osteoarthritis, unspecified site; F32.9 Major depressive disorder, single episode, unspecified; Z79.899 Other long term (current) drug therapy; Z98.890 Other specified postprocedural states
CPT/HCPCS: 62321; J1030; J1040; Q9965

== ENCOUNTER → 2021-04-02 | Outpatient (CLI) | payer OTHER ==
[2018-08-12 08:41] VITALS: BP 112/77
--- NOTE | 2021-04-02 10:39 | PDOC ---
Progress Note - Pain Clinic Date of Service: DOS: DATE: 04/02/21 TIME: 10:34 Diagnosis: Dx: Cervical radiculopathy with cervical degenerative disc disease Lumbar radiculopathy with lumbar degenerative disc disease Bilateral greater trochanteric bursitis Bilateral hip joint pain with osteoarthritis History or Present Illness: HPI: 35-year-old female returns for follow-up status post cervical epidural steroid injection x1. Patient reports 100% improvement for the first week or so and the pain began to return into the second week gradually base the neck and shoulder into the left shoulder and arm patient reports the first week she is doing everything she wanted to increase activity at home and work doing household activities sleeping much better patient reports still sleeping fairly well but it can awaken her sleep for maybe once a night at the most. Patient rates her pain as a 9 on scale 10 is worse over this past week 6 on average 6 its least is a 6 today pain scribes a sharp and shooting in the upper back mid upper back and neck and shoulders a stabbing pain with some constant pain in the upper back and right shoulder. Patient reports no loss of motor function, pain is worse with repetitive motions weightbearing especially with the right arm. Physical Exam: VS: Blood pressure is 118/77 pulse 71 respirations 18 temperature is 98.4 F height is 5 feet 3 inches weight is 188 pounds. PE: PHYSICAL EXAMINATION: GENERAL: The patient is awake, alert, oriented, appropriate, very pleasant in demeanor HEENT: Shows normocephalic, atraumatic. Extraocular movements are intact and symmetrical. Oral cavity: Mucous membranes moist and pink. Dentition is intact. NECK: Shows anterior throat supple without palpable lymphadenopathy noted. Swallow reflex symmetrical. CHEST: Shows normal on inspection. Tattooing again noted. Breath sounds are clear bilaterally, no rales rhonchi or wheezes auscultated. HEART: Shows S1, S2 clear. No murmurs auscultated. ABDOMEN: Soft, nontender, nondistended, obese. No palpable organomegaly is noted. No rebound or guarding demonstrated. BACK: Shows spine grossly in the midline. Normal-appearing cervical lordotic curvature. Cervical paraspinous muscles show symmetrical inspection, on palpation some moderate tenderness diffusely bilaterally diffusely without significant radiation. Patient has good rotation motion cervical spine both laterally as well as full extension full forward flexion without significant increase in pain. There is slightly increased thoracic kyphosis, some minor flattening of the lumbar lordotic curvature. EXTREMITIES: Upper extremities show deep tendon reflexes 2+ in the biceps and triceps tendons. 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 Peripheral pulses are 2+ radial. No peripheral edema is noted bilaterally. Upper extremities are warm and dry to touch, equal in color and appearance. SKIN: Shows warm and dry, good turgor. No edema. No sores, rashes or bruising throughout. Procedure: Procedure: Options discussed with patient. Patient's old chart reviews her current medication regimen updated current review of systems updated today as well. We will proceed with a second in the series cervical epidural steroid injection today with fluoroscopic guidance. Risks were discussed including but not limited to: Bleeding, infection, possibility of epidural hematoma and subsequent neurological compromise, dural puncture, headaches, spinal cord and/or nerve damage, side effects of steroid medication, and poor results regarding pain control. Patient understands and wished to proceed. Patient return to the clinic in approximately 2 weeks for follow-up, was counseled as return appointment activity level and side effects to be aware of. Medication Injected: Med Injected: Procedure cervical epidural steroid injection at the C6-7 level, using local anesthetic under sterile prep and drape using C-arm fluoroscopic guidance under local anesthesia medications injected ;120 mg Depo-Medrol +5 mL normal saline and 2 mL contrast; condition at discharge is stable patient tolerated procedure well. and had no complications Condition at Discharge: Condition at Discharge: Condition at discharge is stable, patient tolerated procedure well and had no complications. MALLORY HUNT MD Apr 02, 2021 10:39
--- NOTE | 2021-04-02 10:39 | PDOC4 ---
Procedure Note: ICD 10 Code: ICD 10 Code: M54.12 M50.30 Procedure Note: Patient was consented for cervical epidural steroid injection with fluoroscopic guidance. Risks were discussed including but not limited to: Bleeding, infection, possibility of epidural hematoma and subsequent neurological compromise, dural puncture, headaches, spinal cord and/or nerve damage, side effects of steroid medication, and poor results regarding pain control. Patient understands and wished to proceed. Procedure cervical epidural steroid injection at the C6-7 level, using local anesthetic under sterile prep and drape using C-arm fluoroscopic guidance under local anesthesia medications injected ;120 mg Depo-Medrol +5 mL normal saline and 2 mL contrast; condition at discharge is stable patient tolerated procedure well. and had no complications MALLORY HUNT MD Apr 02, 2021 10:39
== END | disposition home or self-care (01) ==
LOC: PNCL 09:41
PROVIDERS: ATTEND Anesthesiology
DX: M50.10 Cervical disc disorder with radiculopathy, unspecified cervical region (principal); M51.16 Intervertebral disc disorders with radiculopathy, lumbar region; M70.62 Trochanteric bursitis, left hip; M70.61 Trochanteric bursitis, right hip; M16.0 Bilateral primary osteoarthritis of hip; K21.9 Gastro-esophageal reflux disease without esophagitis; F32.9 Major depressive disorder, single episode, unspecified; Z79.899 Other long term (current) drug therapy; Z98.890 Other specified postprocedural states; Z88.5 Allergy status to narcotic agent; Z88.8 Allergy status to other drugs, medicaments and biological substances
CPT/HCPCS: 62321; J1030; J1040; Q9965

== ENCOUNTER → 2021-04-18 | Outpatient (CLI) | payer OTHER ==
[2018-08-12 08:41] VITALS: BP 112/77
[~2021-04-18] MED LIST changes: -methylPREDNISolone ACETATE 40 MG/ML VIAL. ONE
--- NOTE | 2021-04-18 11:16 | PDOC ---
Progress Note - Pain Clinic Date of Service: DOS: DATE: 04/18/21 TIME: 11:12 Diagnosis: Dx: Cervical radiculopathy with cervical degenerative disc disease Lumbar radiculopathy with lumbar degenerative disease Greater trochanteric bursitis Bilateral hip joint pain with osteoarthritis History or Present Illness: HPI: 35-year-old female returns for follow-up status post cervical epidural steroid injection x2. Patient reports she did very well after the last injection year 110 improvement until the last 3 days pain began to return and is now in bilateral upper back and shoulders more than the arms which is new for her as it was mostly in the upper extremities patient reports in the base the neck and the upper back and the shoulder blades bilaterally slightly worse on the right than the left patient reports there is an 8 on scale 10 is worse over the past week for an average 3 at its least is a 3 today patient ports that sharp and dull alternating and tight in the back and stabbing in the upper extremities and posterior shoulders patient reports that the shoulders were doing great originally but now this pain is returning more in the posterior aspect of the scapular region patient reports that he was doing much better with work activities household activities travel with greater ease and comfort sleeping better at night still is not waking her from sleep most nights. Patient reports no bowel or bladder incontinence or other complaints. Physical Exam: VS: Blood pressure is 116/73 pulse 78 respirations 18 temperature 98.4 F height is 5 feet 3 inches weight is 189 pounds PE: PHYSICAL EXAMINATION: GENERAL: The patient is awake, alert, oriented, appropriate, very pleasant in demeanor HEENT: Shows normocephalic, atraumatic. Extraocular movements are intact and symmetrical. Oral cavity: Mucous membranes moist and pink. Dentition is intact. NECK: Shows anterior throat supple without palpable lymphadenopathy noted. Swallow reflex symmetrical. CHEST: Shows normal on inspection. Breath sounds are clear bilaterally, no rales or rhonchi. HEART: Shows S1, S2 clear. No murmurs auscultated. ABDOMEN: Soft, nontender, nondistended. No palpable organomegaly is noted. BACK: Shows spine grossly in the midline. Normal-appearing cervical lordotic curvature. Cervical paraspinous muscles show symmetrical inspection on palpation some mild tenderness more diffusely in the lower cervical distribution without trigger points patient shows full rotation motion cervical spine with lateral as well as full extension full forward flexion without significant difficulty. There is slightly increased thoracic kyphosis, some minor flattening of the lumbar lordotic curvature. EXTREMITIES: Upper extremities show deep tendon reflexes no in the biceps and triceps tendons. 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 Peripheral pulses are 2+ radial. No peripheral edema is noted bilaterally. Upper extremities are warm and dry to touch, equal in color and appearance. SKIN: Shows warm and dry, good turgor. No edema. No sores, rashes or bruising throughout. Procedure: Procedure: Options were discussed with the patient. Patient's old chart was reviewed as her current medication regimen updated current review of systems updated today as well. We will proceed with a cervical epidural steroid injection today with fluoroscopic guidance. Risks were discussed including but not limited to: Bleeding, infection, possibility of epidural hematoma and subsequent neurological compromise, dural puncture, headaches, spinal cord and/or nerve damage, side effects of steroid medication, and poor results regarding pain control. Patient understands and wished to proceed. She will return to clinic in approximately 2 weeks for follow-up, was counseled as return appointment, activity level, and side effects aware of. Medication Injected: Med Injected: Procedure cervical epidural steroid injection at the C6-7 level, using local anesthetic under sterile prep and drape using C-arm fluoroscopic guidance under local anesthesia medications injected ;120 mg Depo-Medrol +5 mL normal saline and 2 mL contrast; condition at discharge is stable patient tolerated procedure well. and had no complications Condition at Discharge: Condition at Discharge: Condition at discharge stable, patient however the procedure well and had no complications. MALLORY HUNT MD Apr 18, 2021 11:16
--- NOTE | 2021-04-18 11:17 | PDOC4 ---
Procedure Note: ICD 10 Code: ICD 10 Code: M54.12 M50.30 Procedure Note: Patient was consented for cervical epidural steroid injection with fluoroscopic guidance. Risks were discussed including but not limited to: Bleeding, infection, possibility of epidural hematoma and subsequent neurological compromise, dural puncture, headaches, spinal cord and/or nerve damage, side effects of steroid medication, and poor results regarding pain control. Patient understands and wished to proceed. Procedure cervical epidural steroid injection at the C6-7 level, using local anesthetic under sterile prep and drape using C-arm fluoroscopic guidance under local anesthesia medications injected ;120 mg Depo-Medrol +5 mL normal saline and 2 mL contrast; condition at discharge is stable patient tolerated procedure well. and had no complications MALLORY HUNT MD Apr 18, 2021 11:17
== END | disposition home or self-care (01) ==
LOC: PNCL 09:43
PROVIDERS: ATTEND Anesthesiology
DX: M50.10 Cervical disc disorder with radiculopathy, unspecified cervical region (principal); M51.16 Intervertebral disc disorders with radiculopathy, lumbar region; M70.62 Trochanteric bursitis, left hip; M70.61 Trochanteric bursitis, right hip; M16.0 Bilateral primary osteoarthritis of hip; K21.9 Gastro-esophageal reflux disease without esophagitis; F32.9 Major depressive disorder, single episode, unspecified; Z79.899 Other long term (current) drug therapy; Z98.890 Other specified postprocedural states
CPT/HCPCS: 62321; J1040; Q9965